=== PATIENT | female | born 1950 | race African-American/Black ===

== ENCOUNTER 2023-04-19 10:30 | Outpatient (AMB) | payer OTHER, SELFPAY ==
--- NOTE | 2023-04-19 10:54 | MHC.OFFVIS ---
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 SHe says she had atleast 5 episodes whenere she fell and passed out. In November 2021 she was standing up from a sitting position and felt dizzy and passe dout. she denies any chest pain or palpitations at that time.CT brain EKG and ECHO were normal. It was presumed to be due to dehydration related to recent diarrhea. She was started on IV fluids she was seen by gas furnace installer and started on midodrine 2.5mg tid and later increased to 5mg tid. she drinks 33 ounces of water per day, 1 cup of coffee, 1 cup cranberry juice and milk she is scheduled for tilt table testing by her gas furnace installer she feels dizzy and has near syncope anytime she changes position from sitting to standing. She denies tremors . she has constipation. she has overactive bladder. SHe report screaming and yelling in sleep for 2 years now.she has loud snoring gasping arousals and has witnessed apneas. [facility] Medical History (Updated 04/19/23 @ 11:32 by Kesha Colon MD) Witnessed apneic spells Snoring REM behavioral disorder Orthostatic hypotension PAD (peripheral artery disease) Bronchial asthma Overactive bladder Vertigo Hyperlipidemia Lumbar spinal stenosis HTN (hypertension) Syncope Surgical History Hx of vein stripping Family History Father Brother Hypertension Sister Hypertension Social History Household Members: Other Household Members Other:: alone Alcohol intake: never Patient Tobacco Use Status: Never used Tobacco Review of Systems Const Reports daytime sleepiness, Reports difficulty sleeping, Reports lethargy, Reports snoring and Reports weight loss Eyes Reports blurry vision and Reports diplopia ENT Reports dysphagia and Reports dizziness Resp Reports snoring GI Reports constipation and Reports dysphagia Reports urinary incontinence Musc Reports abnormal gait and Reports back pain Neuro Reports abnormal gait and Reports dizziness Physical Exam Vital Signs: Last Vital Signs Pulse 90 04/19/23 10:55 BP 150/100 H 04/19/23 10:55 Pulse Ox 98 04/19/23 10:55 Oxygen Delivery Method Room Air 04/19/23 10:55 BMI result Body Mass Index 31.0 Const General: cooperative and comfortable Nutritional Appearance: average body habitus Orientation/consciousness: No patient oriented x3 Neuro Other: Mild moderate bradykinesia No tremors Mild decreased facial expression and blink Normal voice FFM and foot taps severely decreased guerline L>R Gait- with walker - slow small steps General: No patient oriented x3 Cognition (Neuro): normal cognition Motor exam (neuro): 5/5 motor strength present throughout and Normal motor muscle tone present throughout Deep tendon reflexes (DTR's): Right triceps reflex intensity grade: 3+, Left triceps reflex intensity grade: 3+, Rt Biceps (C5, C6): 3+, Left biceps reflex intensity grade: 3+, Right brachioradialis reflex intensity grade: 3+, Left brachioradialis reflex intensity grade: 3+, Right patellar reflex intensity grade: 3+ and Left patellar reflex intensity grade: 3+ Coordination: [id number] test normal Assessment & Plan Assessment & Plan (1) Orthostatic hypotension: Code(s): I95.1 - Orthostatic hypotension (2) REM behavioral disorder: Code(s): G47.52 - REM sleep behavior disorder (3) Snoring: Code(s): R06.83 - Snoring (4) Witnessed apneic spells: Code(s): R06.81 - Apnea, not elsewhere classified Plan SLeep study to evaluate for sleep apnea and REM behavior disorder I will trial her on droxidopa 100mg tid suggested to continue midodrine and florinef for now . 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 Orders: Orders RT PSG in-lab sleep study Today G47.52 - REM sleep behavior disorder, R06.81 - Apnea, not elsewhere classified, R06.83 - Snoring Medications: New droxidopa give consistently with OR without food, upon rising, at midday, late PM/at least 3hrs before bedtime 100 mg PO TID 90 caps 6RF melatonin 3 mg PO BEDTIME 30 tabs 0RF sleep Coding Level of Care Code New Pt Level 4 (19595) Diagnoses Orthostatic hypotension I95.1 REM behavioral disorder G47.52 Snoring R06.83 Witnessed apneic spells R06.81
[2023-04-19 10:55] VITALS: BP 150/100; PULSE 90; O2SAT 98; BMI 31.0
== END 2023-04-19 11:47 | disposition home or self-care (01) ==
PROVIDERS: Visit Provider Psychiatry & Neurology Neurology
DX: I95.1 Orthostatic hypotension (principal); G47.52 REM sleep behavior disorder; R06.83 Snoring; R06.81 Apnea, not elsewhere classified
CPT/HCPCS: 99204

== ENCOUNTER → 2023-04-19 10:30 | Outpatient (BNVA) | payer OTHER, SELFPAY | PROVIDERS: Visit Provider Psychiatry & Neurology Neurology ==

== ENCOUNTER → 2023-05-22 19:30 | Outpatient (REF) | payer OTHER, SELFPAY | LOC: HO.SL 19:30 | PROVIDERS: Visit Provider Psychiatry & Neurology Neurology | DX: G47.52 REM sleep behavior disorder (principal); R06.83 Snoring; R06.81 Apnea, not elsewhere classified | CPT/HCPCS: 95810 ==

== ENCOUNTER → 2023-05-22 22:00 | Outpatient (BNV) | payer OTHER, SELFPAY | PROVIDERS: Visit Provider Psychiatry & Neurology Neurology | DX: G47.33 Obstructive sleep apnea (adult) (pediatric) (principal); G47.52 REM sleep behavior disorder | CPT/HCPCS: 95810 ==